=== PATIENT | female | born 1965 | race Caucasian/White ===

== ENCOUNTER → 2016-11-17 | Outpatient (CLI) | payer MEDICARE, BC ==
[~2016-11-17] MED LIST: CLON0.2T PO; COLC1TAB13 PO; DOXA1TAB40 PO; FURO40TA2 PO; IMUR50TA6 PO; LEVO200T4 PO; LOPR1TAB7 PO; METO100T5 PO; MINO10TA PO; OMEP40CA2 PO; PRED5TA PO; PROB500T29 PO; PROL60SO SC; SERT-138 PO; SIMV20TA2 PO; SIRO1TAB3 PO
[2016-11-17 13:42] LABS: MEAN CORPUSCULAR HEMOGLOBIN 36.3 pg (27.0-33.0); MEAN CORPUSCULAR HGB CONC 34.9 g/dl (32.0-36.5); RED CELL DISTRIBUTION WIDTH 16.9 % (11.5-14.5); WHITE BLOOD COUNT 3.8 K/mm3 (4.0-10.0)
[2016-11-17 14:26] LABS: ALBUMIN 2.9 GM/DL (3.2-5.2); ALBUMIN/GLOBULIN RATIO 0.73 (1.00-1.93); BILIRUBIN,TOTAL 0.4 MG/DL (0.2-1.0); CALCIUM LEVEL 9.5 MG/DL (8.5-10.1); CREATININE FOR GFR 4.97 MG/DL (0.55-1.02); GLOMERULAR FILTRATION RATE 9.7 (>51); POTASSIUM SERUM 3.9 MEQ/L (3.5-5.1); TOTAL PROTEIN 6.9 GM/DL (6.4-8.2)
== END ==
LOC: M LAB 12:44
PROVIDERS: ATTEND Surgery Vascular Surgery
DX: N18.6 End stage renal disease (principal)

== ENCOUNTER 2016-11-25 11:38 | Day surgery (SDC) | payer MEDICARE, BC ==
[~2016-11-25] VITALS: Ht 154.9 cm; Wt 49.7 kg
[2016-11-25] MEDS ORDERED: NS 1,000 ML IV ONE (12:00)
[2016-11-25] MEDS ORDERED: NS 1,000 ML IV SCH ×2 (12:00→16:45)
[2016-11-25] MEDS ORDERED: CLINDAMYCIN 600 MG in APPROPRIATE DILUENT 1 EA IV ONE (12:00)
[2016-11-25] MEDS ORDERED: ETOMIDATE INJ 20MG/10ML VIAL As Ordered ONE (13:15)
[2016-11-25] MEDS ORDERED: ROCURONIUM BROMIDE 50 MG/5 ML VIAL/SYRINGE As Ordered ONE (13:15)
[2016-11-25] MEDS ORDERED: ONDANSETRON 4MG/2ML VIAL (J2405) As Ordered ONE ×2 (13:16→16:29)
[2016-11-25] MEDS ORDERED: dexameTHASONE 4 MG/ML 1ML VIAL (J1100) As Ordered ONE (13:16)
[2016-11-25] MEDS ORDERED: HEPARIN SOD (PORCINE) 5000 UNITS/ML VIAL As Ordered ONE (13:26)
[2016-11-25] MEDS ORDERED: LIDOCAINE 1% SDV INJ 30 ML VIAL As Ordered ONE (13:58)
[2016-11-25] MEDS ORDERED: BUPIVACAINE HCL 0.5% 30 ML VIAL As Ordered ONE (13:59)
[2016-11-25] MEDS ORDERED: ONDANSETRON 4MG/2ML VIAL (J2405) IV PRN (16:45)
[2016-11-25] MEDS ORDERED: NORCO, ANEXSIA 5/325MG TABLET (HYDROcodone/ACETAMINOPHEN) PO PRN (16:45)
[2016-11-25 17:41] LABS: BASO % 0.4 % (0.0-1.0); EOS # 0.1 K/mm3 (0.0-0.50); EOS % 2.7 % (0.0-3.0); LYMPH # 0.1 K/mm3 (1.5-4.5); LYMPH % 3.4 % (24.0-44.0); MEAN CORPUSCULAR HGB CONC 35.1 g/dl (32.0-36.5); MEAN CORPUSCULAR VOLUME 105.5 fl (80.0-96.0); MONO # 0.1 K/mm3 (0.0-0.8); MONO % 2.1 % (0.0-5.0); NEUTROPHILS # 3.4 K/mm3 (1.8-7.7); NEUTROPHILS % 90.5 % (36.0-66.0); PLATELET COUNT, AUTOMATED 174 k/mm3 (150-450); RED CELL DISTRIBUTION WIDTH 16.1 % (11.5-14.5); WHITE BLOOD COUNT 3.7 K/mm3 (4.0-10.0)
[2016-11-25 17:57] LABS: CALCIUM LEVEL 8.5 MG/DL (8.5-10.1); CREATININE FOR GFR 4.31 MG/DL (0.55-1.02); GLOMERULAR FILTRATION RATE 11.4 (>51); POTASSIUM SERUM 3.8 MEQ/L (3.5-5.1)
[2016-11-25 18:05] VITALS: O2SAT 98
[2016-11-25 19:45] VITALS: BP 144/72
[2016-11-25] MEDS: METOPROLOL TARTRATE 100 MG TAB PO SCH (20:40)
[2016-11-25] MEDS: ACETAMINOPHEN TAB 650MG DOSE (2X325MG) PO PRN (20:42)
[2016-11-25] MEDS ORDERED: SERTRALINE 100 MG TAB PO SCH (21:00)
[2016-11-25] MEDS ORDERED: FUROSEMIDE 40 MG TAB PO SCH (21:00)
[2016-11-25] MEDS: DOXAZOSIN MESYLATE 4 MG TAB PO SCH (21:00)
[2016-11-25] MEDS ORDERED: SIMVASTATIN 20 MG TAB PO SCH (21:00)
[2016-11-25] MEDS: PROBENECID 500 MG TAB PO SCH (22:05)
[2016-11-25] MEDS: cloNIDine 0.2 MG TAB PO SCH (22:05)
[2016-11-25] MEDS: MINOXIDIL 10 MG TAB PO SCH (22:06)
[2016-11-25 23:45] VITALS: BP 115/59
[2016-11-26] MEDS: ACETAMINOPHEN TAB 650MG DOSE (2X325MG) PO PRN (05:50)
[2016-11-26 06:00] VITALS: BP 128/70
[2016-11-26] MEDS ORDERED: LEVOTHYROXINE 100MCG TABLET (0.1MG) PO SCH (06:00)
[2016-11-26] MEDS ORDERED: fentaNYL 250 MCG/5 ML INJECTION (J3010) As Ordered ONE (06:25)
[2016-11-26] MEDS ORDERED: MIDAZOLAM INJ 2 MG/2 ML VIAL (J2250) As Ordered ONE (06:25)
[2016-11-26] MEDS ORDERED: azaTHIOprine 50 MG TAB (J7500) PO SCH (09:00)
[2016-11-26] MEDS ORDERED: SIROLIMUS 1 MG PO SCH (09:00)
[2016-11-26] MEDS ORDERED: FUROSEMIDE 40 MG TAB PO SCH (09:00)
[2016-11-26] MEDS ORDERED: predniSONE 5 MG TAB PO SCH (09:00)
[2016-11-26] MEDS ORDERED: OMEPRAZOLE 20 MG CAP PO SCH (09:00)
[2016-11-26] MEDS: PROBENECID 500 MG TAB PO SCH (09:22)
[2016-11-26] MEDS: METOPROLOL TARTRATE 100 MG TAB PO SCH (09:24)
[2016-11-26 09:25] VITALS: BP 128/70
[2016-11-26] MEDS: cloNIDine 0.2 MG TAB PO SCH (09:25)
[2016-11-26] MEDS: MINOXIDIL 10 MG TAB PO SCH (09:25)
[2016-11-26] MEDS: DOXAZOSIN MESYLATE 4 MG TAB PO SCH (09:26)
--- NOTE | 2016-11-26 19:29 | DS.PDOC ---
Discharge Summary General Date of Admission 11/25/2016 Date of Discharge 11/26/2016 Attending Physician: Tevin Milligan MD Specialist/Consultants Involve Dr. Jimmy Gallagher social work therapist at [facility] Discharge Summary PROCEDURES PERFORMED DURING STAY: Laparoscopic lysis of adhesions and laparoscopic peritoneal dialysis catheter insertion. ADMITTING DIAGNOSES: 1. End-stage renal disease DISCHARGE DIAGNOSES: 1. End-stage renal disease COMPLICATIONS/CHIEF COMPLAINT: Renal Failure. HISTORY OF PRESENT ILLNESS: Patient is a 51-year-old female with renal failure requiring access for dialysis. Patient wishes to undergo placement of a peroneal dialysis catheter which was performed and also require lysis of adhesions. HOSPITAL COURSE: Patient was admitted and underwent a laparoscopic lysis of adhesions and laparoscopic part of dialysis catheter placement. She did well overnight and her catheter was flushed with 2 separate installations of 1000 cc of saline today with good return of fluid. The fluid was initially blood tinged secondary to the lysis of adhesions but the second instillation of 1000 cc returned here fluid. DISCHARGE MEDICATIONS: Please see below. ALLERGIES: Please see below. PHYSICAL EXAMINATION ON DISCHARGE: VITAL SIGNS: Please see below. GENERAL: Lying in bed comfortably HEENT: Normal NECK: Neck was supple with no carotid bruits CARDIOVASCULAR EXAMINATION: Regular rate and rhythm RESPIRATORY EXAMINATION: Clear to auscultation bilaterally ABDOMINAL EXAMINATION: Soft nontender nondistended. Peritoneal dialysis catheter exit site clean dry and intact. Incisions dressed and clean. EXTREMITIES: No perfused with no clubbing cyanosis or edema SKIN: Normal NEUROLOGICAL EXAMINATION: Awake alert oriented x3 with no focal deficits PSYCHIATRIC EXAMINATION: Normal LABORATORY DATA: Please see below. PROGNOSIS: Excellent ACTIVITY: As tolerated. DIET: Renal diet. DISCHARGE PLAN: Patient is being discharged to home DISPOSITION: . DISCHARGE INSTRUCTIONS: 1. patient will followup with her social work therapist for initiation of peritoneal dialysis which will be seen as soon as possible. DISCHARGE CONDITION: Stable. TIME SPENT ON DISCHARGE: Greater than a 45 minutes. Vital Signs/I&Os Vital Signs Date Time Temp Pulse Resp B/P (MAP) Pulse Ox O2 Delivery O2 Flow Rate FiO2 11/26/16 09:25 128/70 11/26/16 09:24 59 11/26/16 08:11 Room Air 11/26/16 06:00 98.7 18 99 11/25/16 21:45 2.0 I&O- Last 24 Hours up to 6 AM 11/26/16 05:59 Intake Total 245 ml Output Total 350 ml Balance -105 ml Discharge Medications Scheduled (Prolia) 60 Mg/Ml [place], 60 MG SC ASDIRECTED, (Reported) Azathioprine (Imuran) 50 Mg Tab, 50 MG PO QAM, (Reported) Clonidine Hydrochloride (Clonidine HCl) 0.2 Mg Tab, 0.2 MG PO BID, (Reported) Colchicine (Colchicine) 0.6 Mg Tab, 0.6 MG PO QWEEK, (Reported) tuesdays Doxazosin Mesylate (Doxazosin Mesylate) 4 Mg Tab, 4 MG PO BID, (Reported) Furosemide (Furosemide) 40 Mg Tab, 40 MG PO BID, (Reported) 1 1/2 tabs in the morning and 1 tab at night Levothyroxine Sodium (Synthroid) 200 Mcg Tab, 200 MCG PO QAM, (Reported) Metoprolol Tartrate (Lopressor) 100 Mg Tab, 150 MG PO BID, (Reported) Minoxidil (Minoxidil) 10 Mg Tab, 5 MG PO BID, (Reported) Omeprazole (Omeprazole) 40 Mg Cap, 40 MG PO QAM, (Reported) Prednisone (Prednisone) 5 Mg Tab, 5 MG PO QAM, (Reported) Probenecid (Probenecid) 500 Mg Tab, 500 MG PO BID, (Reported) 1 1/2 tabs bid Sertraline HCl (Sertraline HCl) 100 Mg Tab, 100 MG PO QHS, (Reported) Simvastatin (Simvastatin) 20 Mg Tab, 20 MG PO QHS, (Reported) Sirolimus (Sirolimus) 1 Mg Tab, 1 MG PO QAM, (Reported) Allergies Coded Allergies: Ciprofloxacin (Unverified Allergy, Severe, sob, muscle pain, 11/24/16) Clarithromycin (Unverified Allergy, Severe, contraindicated with kidney transplant, 11/24/16) Lisinopril (Unverified Allergy, Severe, angioedema, 11/24/16) NSAIDs (Unverified Allergy, Severe, contraindicated, kidney transplant, ) Phenylbutazone (Unverified Allergy, Severe, red/swelling, 11/24/16) Hydrochlorothiazide (Unverified Allergy, Intermediate, hives, 11/24/16) Penicillin G (Unverified Allergy, Mild, rash, 11/24/16) Amlodipine (Unverified Adverse Reaction, Intermediate, leg edema, 11/24/16) Cyclosporine (Unverified Adverse Reaction, Intermediate, hemolytic uremic syndrome, 11/24/16) Diphenhydramine (Unverified Adverse Reaction, Intermediate, muscle spasms , 11/24/16) Hydralazine (Unverified Adverse Reaction, Intermediate, leg edema, 11/24/16 ) Mycophenolate (Unverified Adverse Reaction, Intermediate, gi toxicity, ) Nifedipine (Unverified Adverse Reaction, Intermediate, leg edema, 11/24/16) Propofol (Unverified Adverse Reaction, Intermediate, chest pain, 11/24/16) Aspartame (Unverified Adverse Reaction, Mild, dizziness, 11/24/16) Sulfites (Unverified Adverse Reaction, Mild, n/v/d, 11/24/16) TAPE (Unverified Adverse Reaction, Mild, skin irritation, 11/24/16) Tevin Milligan MD Nov 26, 2016 19:29
--- NOTE | 2016-11-27 19:45 | ECGEPIP ---
Stationary ECG Study [facility] Test Date: 2016-11-25 Pat Name: AURELIANO VALLE Department: Room: - Gender: F Telephone Engineer: : [phone] Requested By: Stu Pizano Order Number: [id number] Reading MD: Kelsi Bliss Measurements Intervals [place] Rate: 52 P: 8 MS: 172 QRS: 87 QRSD: 104 T: 110 QT: 468 QTc: 436 Interpretive Statements SINUS BRADYCARDIA LOW QRS VOLTAGE IN EXTREMITY LEADS POOR R WAVE PROGRESSION NO PRIOR Electronically Signed On 11-27-2016 19:44:50 EDT by Kelsi Bliss
[2016-12-02] MEDS ORDERED: COLCHICINE 0.6 MG TAB PO SCH (09:00)
--- NOTE | 2016-12-16 10:03 | RO ---
DATE OF PROCEDURE: 11/25/2016 PREOPERATIVE DIAGNOSIS: End-stage renal disease. POSTOPERATIVE DIAGNOSIS: End-stage renal disease. PROCEDURE: Laparoscopic lysis of adhesions of omentum to the anterior abdominal wall and small bowel to the anterior abdominal wall. Laparoscopic peritoneal dialysis catheter insertion with suturing of the peritoneal dialysis catheter to the anterior abdominal wall using a #2-0 Prolene suture. SURGEON: Dr. Tevin Milligan SUPERVISOR ELECTRIC: None. ANESTHESIA: General endotracheal. INDICATION: Patient is a 51-year-old female who has end-stage renal disease and had a previous peritoneal dialysis catheter, which required removal, who wishes to undergo reinsertion of a peritoneal dialysis catheter for dialysis access as the patient now requires dialysis. The patient has also had previous renal transplantation in the past. Risks, benefits and alternative treatment options were discussed with the patient. Benefits included but were not limited to presence of a peritoneal dialysis catheter allowing peritoneal dialysis. Alternative treatment options included but were not limited to no intervention. Risks included but were not limited to infection, bleeding, intraabdominal organ injury necessitating exploratory laparotomy with repair, failure of the peritoneal dialysis catheter function, failure of the peritoneal dialysis catheter to provide adequate dialysis, cerebrovascular accident, myocardial infarction, pulmonary embolus, deep venous thrombosis (DVT), loss of limb, loss of life, and poor outcome. Patient's questions were answered. Patient voices understanding of these risks, benefits and alternative treatment options. Patient agrees to undergo a laparoscopic peritoneal dialysis catheter placement with the associated risks, which she accepts. ESTIMATED BLOOD LOSS: 150 mL. INTRAVENOUS (IV) FLUID: 150 mL. HEPARIN: None. COMPLICATIONS: None. DRAINS: None. SPECIMENS: None. IMPLANTS: 62 cm curl tail peritoneal dialysis catheter placed in the peritoneal cavity. DESCRIPTION OF PROCEDURE: Patient was taken to the operating room, placed supine on operating room table and then prepped and draped in a standard surgical fashion. A time-out was conducted and completed by myself and the team the members in the room confirming the appropriate patient, procedure and laterality. The 5 mm port was then placed through a stab incision in the left upper quadrant with the camera within the 5 mm port under direct visualization. Upon entering the abdominal cavity, which was then insufflated, there was noted to be a large amount of adhesions from the omentum to the anterior abdominal wall in the midline as well as some small bowel to the anterior abdominal wall in the midline. These adhesions were taken down sharply and using Bovie electrocautery, after which the catheter was brought through a puncture wound in the infraumbilical region and placed in the right lower quadrant and secure to the anterior abdominal wall using a #2-0 Prolene suture and an Endo Close device through a stab incision in the right lower quadrant. The abdomen was then desufflated, after which the catheter was instilled with 1 liter of saline, which returned easily on aggress. The dialysis fluid was noted to be mildly blood-tinged from the laparoscopic lysis of adhesions. The puncture wounds were then closed using inverted interrupted #3-0 Monocryl suture. Steri-Strips and dressing were applied. Patient tolerated the procedure well. All instruments, sponge and needle counts were correct at the end of the case. There were no complications. Dr. Milligan was present for and directed the entire case. Patient was transferred to the recovery room, awake, alert, extubated and in stable condition.
== END 2016-11-26 16:10 | disposition home or self-care (01) ==
LOC: M SDC 11:38 → M MS5PR 17:20 → M SDC 11-26 16:10
PROVIDERS: ATTEND Surgery Vascular Surgery
DX: N18.6 End stage renal disease (principal); Z94.0 Kidney transplant status; M10.9 Gout, unspecified; M32.10 Systemic lupus erythematosus, organ or system involvement unspecified; G47.30 Sleep apnea, unspecified; F32.9 Major depressive disorder, single episode, unspecified; Z79.899 Other long term (current) drug therapy; Z88.0 Allergy status to penicillin; Z88.2 Allergy status to sulfonamides; Z88.8 Allergy status to other drugs, medicaments and biological substances
CPT/HCPCS: 36415; 49324; 80048; 85025; 93005; J1100; J2250; J2405; J3010; J7500; J7520